=== PATIENT | male | born 1995 | race Two or more races ===

== ENCOUNTER 2023-08-18 05:43 | Emergency (ER) | payer MEDICAID ==
[~2023-08-18] VITALS: Ht 175.3 cm; Wt 81.6 kg
[2023-08-18] MEDS: IBUPROFEN 400 MG TABLET PO ONE (07:14)
[2023-08-18] MEDS ORDERED: IBUPROFEN 400 MG TABLET ONE (07:14)
[2023-08-18 08:21] VITALS: BP 132/81; TEMP 98; O2SAT 98
== END 2023-08-18 08:21 | disposition home or self-care (01) ==
LOC: ER 06:00
DX: S62.616A Displaced fracture of proximal phalanx of right little finger, initial encounter for closed fracture (principal); V89.0XXA Person injured in unspecified motor-vehicle accident, nontraffic, initial encounter; Y93.89 Activity, other specified; Y92.89 Other specified places as the place of occurrence of the external cause; Y99.8 Other external cause status
CPT/HCPCS: 73130-TC